=== PATIENT | female | born 1965 | race Caucasian/White ===

== ENCOUNTER 2017-01-03 13:00 | Emergency (ER) | payer BC ==
[2017-01-03] MEDS ORDERED: Sodium Chloride 0.9% 1,000 ML PRIMARY IV ONE (13:16)
[2017-01-03] MEDS ORDERED: LORazepam 2 MG/1 ML VIAL IVP ONE (13:16)
[2017-01-03] MEDS ORDERED: KETOROLAC 30 MG/1 ML VIAL IVP ONE (13:16)
[2017-01-03] MEDS ORDERED: ASPIRIN 81 MG (BABY) CHEWABLE TABLET PO ONE (13:19)
[2017-01-03 13:22] VITALS: RESP 16; TEMP 97.9
--- NOTE | 2017-01-03 13:22 | PDOC ---
Chest Pain HPI - General Chief Complaint: Chest Pain Stated Complaint: chest pain Date Seen by Provider: 01/03/17 Time Seen by Provider: 13:17 Source: Patient Exam Limitations: POSITIVE: No limitations Treatment Prior to Arrival: REPORTS: None Nurse's Notes Reviewed & Considered: Yes - History of Present Illness Initial Comments: Patient was seen earlier today at the medical office building, and directed to come to the emergency room because of her chest pain. Showed a sudden onset of chest pain that began apparently 1-1/2 hours prior to her presentation here in the emergency department. She describes the pain as intermittent with crescendo decrescendo quality and it is sharp in nature. Pain is predominantly on the right side of her chest in the right anterior lateral chest. She's had a recent upper respiratory infection which included cough, low-grade fevers 29. She states her cough is nonproductive. She denies any nausea vomiting or diarrhea, no hematuria dysuria, no rashes. Body Location Affected: REPORTS: Chest Timing: REPORTS: Abrupt Duration: 1-3 hours Severity: Moderate Quality: REPORTS: "Pain", Sharpness, Stabbing Radiation: REPORTS: Shoulder (R), Arm (R) Associated Symptoms: REPORTS: Shortness of Breath Modifying Factors: improves with: None Reported Similar Symptoms Previously: No Recently seen/treated/hospitalized: No Any Prior Injuries Related to Current Complaint?: No - Patient Home Medications Home Medications: Home Medications Lisinopril/Hydrochlorothiazide [Lisinopril-Hctz 10-12.5 Mg Tab] 1 tab PO BID tab 12/19/16 Potassium Gluconate [Potassium] 1 tab PO QD tab 12/19/16 - Patient Allergies Allergies/Adverse Reactions: Allergies Allergy/AdvReac Type Severity Reaction Status Date / Time No Known Allergies Allergy Verified 01/03/17 13:07 ROS - Limitations ROS Limitations: No Limitations Constitution: REPORTS: Fever Cardiovascular: REPORTS: Chest Pain Respiratory: REPORTS: Cough Non Productive Neurological: REPORTS: Denies Neuro Symptoms Gastrointestinal: REPORTS: Denies GI Symptoms Endocrine: REPORTS: Denies Symptoms Musculoskeletal: REPORTS: Denies MS Symptoms Genitourinary: REPORTS: Denies Symptoms Eyes: REPORTS: Denies Symptoms ENT: REPORTS: Denies Symptoms Skin: REPORTS: Denies Skin Symptoms Lympathic: REPORTS: Denies Lympathic Symptoms Immunologic: POSITIVE: Denies Symptoms Psychiatric: POSITIVE: Anxiety Chest Pain PE - General Appearance General Appearance: REPORTS: Alert, Cooperative, No Evidence of Trauma, Anxious - HEENT HEENT: POSITIVE: Head Inspection Nml, Eyes Inspection Nml, Ears Inspection Nml, Nose Inspection Nml, PERRL, EOMI - Neck Neck: REPORTS: Normal Inspection - Respiratory Respiratory: REPORTS: No Respiratory Distress, Breath Sounds Normal, Chest Non- Tender - Cardiovascular Cardiovascular: REPORTS: Heart Sounds Normal, Tachycardia (With an irregular rhythm.) - Abdomen Abdomen: Soft: (All Quadrants), Normal Bowel Sounds: (All Quadrants), Denies Tenderness: (All Quadrants) - Skin Skin: REPORTS: Intact, Normal For Race, Warm, Dry, No Rash - Extremities Extremity: Non-Tender: (All Extremities), Normal ROM: (All Extremities), Normal Inspection: (All Extremities) - Neurological / Psychological Neurological: POSITIVE: Affect Apporpriate Chest Pain Progress - Results Reviewed by me Xrays/CTs/US Reviewed by me: Yes Discussed with Radiologist: No Lab Results Reviewed: Yes Lab Results:: Laboratory Results 01/03/17 Range/Units 13:10 WBC 8.99 (4.8-10.8) 10^3/uL RBC 3.74 L (4.20-5.40) 10^6/uL Hgb 11.6 L (12.0-16.0) g/dL Hct 34.9 L (37.0-47.0) % MCV 93.3 (81-99) FL MCH 31.0 (27-31) PG MCHC 33.2 (33-37) g/dL RDW Std Deviation 42.5 (39-50) fL RDW Coeff of Vic 12.8 (11.5-14.5) % Plt Count 319 (140-350) 10*3/uL MPV 9.5 (7.4-12.2) FL Immature Gran % (Auto) 0.2 (0-5) % Neut % (Auto) 68.6 (50-80) % Lymph % (Auto) 21.1 (10-50) % Talbot % (Auto) 7.2 (5-15) % Eos % (Auto) 2.2 (0-8) % Baso % (Auto) 0.7 (0-1) % Immature Gran # (Auto) 0.02 10*3/UL Neut # (Auto) 6.16 10*3/UL Lymph # (Auto) 1.90 10*3/uL Talbot # (Auto) 0.65 (0.3-0.8) 10*3/UL Eos # (Auto) 0.20 10*3/UL Baso # (Auto) 0.06 10*3/UL WBC Morphology Comment Normal morphology (NORM) Plt Morphology Comment Normal morphology (NORM) RBC Morph Comment Normal morphology (NORM) ESR Pending D-Dimer 0.28 (0.00-0.59) mg/L Sodium 142 (135-145) meq/L Potassium 3.7 L (3.8-5.2) meq/L Chloride 102 (98-112) meq/L Carbon Dioxide 28 (23-33) meq/L Anion Gap 12 (5-20) BUN 19 (7-22) mg/dL Creatinine 0.9 (0.50-1.20) mg/dL Estimated GFR > 60 (>60 ml/min/1.73m(2)) BUN/Creatinine Ratio 21.11 H (6-20) Glucose 119 H (78-110) mg/dL Calculated Osmolality 296.0 H (267-292) mOsm/kg Calcium 9.6 (8.7-10.7) mg/dL Magnesium 1.9 (1.6-2.4) mg/dL Total Bilirubin 0.3 (0.3-1.2) mg/dL AST 14 (8-39) IU/L ALT 27 (9-52) IU/L Alkaline Phosphatase 82 (38-126) IU/L Troponin I < 0.012 (< 0.040) ng/mL C-Reactive Protein 1.9 H (0.0-0.9) mg/dL Total Protein 8.1 H (6.1-8.0) g/dL Albumin 4.3 (3.5-4.8) g/dL Globulin 3.8 (2.50-4.10) g/dL Albumin/Globulin Ratio 1.10 L (1.3-2.0) mg/g EKG Interpreted/Reviewed By Me:: Yes EKG Interpretation:: POSITIVE: Normal Rate, Normal QRS, Other (Sinus arrhythmia) - Patient's Progress Pain Medication Addressed: POSITIVE: Yes Re-Examine Time: 14:12 Status: POSITIVE: Improved MDM / ED Course: Patient was examined, an IV started, blood drawn and sent to the lab for studies , EKG was obtained, and chest x-ray was obtained. Patient received IV Toradol, normal saline, Ativan, and Zofran. Her symptoms significantly improved. Findings: EKG shows a sinus arrhythmia, CBC shows a normal white count, conference of metabolic panel is unremarkable, d-dimer is normal, troponin is less than 0.012. CRP is elevated at 1.5. Chest x-ray as read by me shows no acute cardiopulmonary decompensation. Assessment: Viral respiratory infection with probable pleuritis. Next Plan: Discharge home, prescription for Combivent, general ibuprofen 600 mg every 6 hours for 3 days. Return to the emergency department if fevers over 102.5, increasing shortness of breath, increasing chest pain, or other concerns. Follow up next week with primary care physician. Quality Measure Initiative: CP/AMI: POSITIVE: EKG, ASA Quality Measure Initiative: CAP: POSITIVE: SaO2, CXR or CT - Consult Consult (If Yes, Name of Consulting MD & Time Called): No Counseled: POSITIVE: Patient, RE: Lab Results, RE: Radiology Results, RE: DX, RE : Need for F/U Patient Care Time - Estimated PCT Patient Care Time (In Minutes): 30 Vital Signs - Recent Vital Signs Vital Signs: Vital Signs (Last 8 hours) Temp Pulse Resp BP Pulse Ox 01/03/17 13:06 97.9 F 78 16 147/104 98 - VS Reviewed Vital Signs Reviewed: Yes Discharge Clinical Impression: Pleuritic pain Discharge Disposition: Discharged to Home Condition: Stable Patient Instructions Given at Discharge: Pleurisy (ED)
[2017-01-03 13:40] LABS: BASOPHILS # (AUTO) 0.06 10*3/UL; BASOPHILS % (AUTO) 0.7 % (0-1); EOSINOPHILS % (AUTO) 2.2 % (0-8); HEMATOCRIT 34.9 % (37.0-47.0); HEMOGLOBIN 11.6 g/dL (12.0-16.0); IMM GRAN % (AUTO) 0.2 % (0-5); IMM GRAN# (AUTO) 0.02 10*3/UL; LYMPHOCYTES % (AUTO) 21.1 % (10-50); MEAN CORPUSCULAR HGB CONC 33.2 g/dL (33-37); MEAN PLATELET VOLUME 9.5 FL (7.4-12.2); MONOCYTES # (AUTO) 0.65 10*3/UL (0.3-0.8); MONOCYTES % (AUTO) 7.2 % (5-15); NEUTROPHILS # (AUTO) 6.16 10*3/UL; NEUTROPHILS % (AUTO) 68.6 % (50-80); RDW COEFFICIENT OF VARIATION 12.8 % (11.5-14.5); RED BLOOD COUNT 3.74 10^6/uL (4.20-5.40); WHITE BLOOD COUNT 8.99 10^3/uL (4.8-10.8)
[2017-01-03 13:46] LABS: PLATELET MORPHOLOGY COMMENT NORMAL MORPHOLOGY (NORM)
[2017-01-03 13:54] LABS: ASPARTATE AMINO TRANSFERASE 14 IU/L (8-39); BILIRUBIN,TOTAL 0.3 mg/dL (0.3-1.2); BLOOD UREA NITROGEN 19 mg/dL (7-22); BUN/CREATININE RATIO 21.11 (6-20); C-REACTIVE PROTEIN 1.9 mg/dL (0.0-0.9); CALCIUM 9.6 mg/dL (8.7-10.7); CHLORIDE 102 meq/L (98-112); CREATININE 0.9 mg/dL (0.50-1.20); EST GLOMERULAR FILTRATION > 60 (>60 ml/min/1.73m(2)); GLUCOSE 119 mg/dL (78-110); MAGNESIUM 1.9 mg/dL (1.6-2.4); POTASSIUM 3.7 meq/L (3.8-5.2); SODIUM 142 meq/L (135-145); TOTAL PROTEIN 8.1 g/dL (6.1-8.0)
[2017-01-03 14:26] LABS: ERYTHROCYTE SEDIMENTATION RATE 65 MM/HR (0-20)
--- NOTE | 2017-01-03 15:38 | EKG ---
[address] [address] Measurements Intervals Rindge Rate: 85 P: 55 NV: 135 QRS: 54 QRSD: 92 T: 28 QT: 342 QTc: 384 Interpretive Statements SINUS RHYTHM WITH MARKED SINUS ARRHYTHMIA No previous ECG available for comparison Electronically Signed On 01-03-17 15:48:04 MST by Spencer Jesus [email or web address]
--- NOTE | 2017-01-04 14:14 | DI ---
[facility] CHEST X-RAY, 01/03/2017 1:16 PM : Clinical History: Chest pain. Previous Exam: None at this facility. There is no acute soft tissue or bony abnormality. Heart size is normal. Lungs are clear. Mediastinal structures are normal. There are no pulmonary nodules. Reading: Normal chest x-ray.
== END 2017-01-03 14:53 | disposition home or self-care (01) ==
LOC: ER 13:00
DX: R07.81 Pleurodynia (principal); R06.02 Shortness of breath; R05 Cough
CPT/HCPCS: 71010; 80053; 83735; 84484; 85025; 85379; 85652; 86140; 93005; 93010; 96361; 96374; 96375; 99284 ×2; J1885; J2060; J7030